=== PATIENT | female | born 1955 | race Caucasian/White ===

== ENCOUNTER 2019-01-14 15:22 | Emergency (ER) | payer MEDICARE ==
[2019-01-14] MEDS ORDERED: Sodium Chloride 0.9% 10 ML Syringe FLUSH PRN (19:56)
[2019-01-14] MEDS ORDERED: Ondansetron 4 MG/2 ML SDV IVPUSH ONE (19:58)
[2019-01-14] MEDS ORDERED: Ketorolac 30 MG/ML SDV IVPUSH ONE (19:58)
[2019-01-14] MEDS ORDERED: Sodium Chloride 0.9% 1,000 ML IV SCH ×2 (20:00→21:15)
--- NOTE | 2019-01-14 20:12 | EDM.PDOC ---
ED HPI GENERAL MEDICAL PROBLEM - General Chief Complaint: General Stated Complaint: DEHYDRATED Time Seen by Provider: 01/14/19 20:00 Source of Information: Reports: Patient History Limitations: Reports: No Limitations - History of Present Illness INITIAL COMMENTS - FREE TEXT/NARRATIVE: La is a 63 year old female who presents to the ED today with fever, chills , productive cough with green sputum production, sinus pressure/pain and body aches for the last few days. Patient was seen in the clinic yesterday, told she was dehydrated and sent home. Patient has been nauseated, unable to drink fluids, unable to eat. Patient denies any vomiting or diarrhea. Patient does have hx of tachycardia but arrives here with 130 heart rate this evening. She denies any chest pain/pressure. Patient has not taken anything for her symptoms due to her nausea. Onset: Gradual Duration: Day(s): (5) Generalized Pain Score (Numeric/FACES): 8 - Related Data Allergies Allergy/AdvReac Type Severity Reaction Status Date / Time morphine Allergy Itching Verified 01/14/19 19:19 Sulfa (Sulfonamide Allergy Hives Verified 01/14/19 19:19 Antibiotics) Home Meds: Home Meds Albuterol [Ventolin HFA] 2 puff .XX Q4H PRN 01/14/19 [History] Ascorbic Acid [Vitamin C] 2,000 mg PO DAILY 01/14/19 [History] Budesonide/Formoterol Fumarate [Symbicort 160-4.5 Mcg Inhaler] 1 puff INH BID PRN 01/14/19 [History] Ca Carbonate/Vitamin D3/Vit K [Calcium + D Soft Chewable Tab] 1 each PO DAILY [History] Cholecalciferol (Vitamin D3) [Vitamin D] 50,000 unit PO Q7D 01/14/19 [History] DULoxetine HCl [Cymbalta] 120 mg PO DAILY 01/14/19 [History] DULoxetine [Cymbalta] 60 mg PO BEDTIME 01/14/19 [History] Estrodial 1 tab PO DAILY 01/14/19 [History] Furosemide 20 mg PO DAILY 01/14/19 [History] Levothyroxine [Synthroid] 88 mcg PO ACBREAKFAST 01/14/19 [History] Linaclotide [Linzess] 145 mcg PO DAILY 01/14/19 [History] Meloxicam [Mobic] 15 mg PO DAILY 01/14/19 [History] Multivitamin/Iron/Folic Acid [Centrum Adults Tablet] 1 tab PO DAILY 01/14/19 [ History] Omeprazole 20 mg PO DAILY 01/14/19 [History] Propranolol [Inderal] 10 mg PO DAILY PRN 01/14/19 [History] clonazePAM [Clonazepam] 0.5 mg PO BID PRN 01/14/19 [History] rOPINIRole [Requip] 1 mg PO DAILY 01/14/19 [History] tiZANidine HCl [Tizanidine HCl] 4 mg PO BEDTIME 01/14/19 [History] Past Medical History Cardiovascular History: Reports: Other (See Below) Other Cardiovascular History: tachacardia Respiratory History: Reports: COPD Gastrointestinal History: Reports: Irritable Bowel Syndrome, Other (See Below) Other Gastrointestinal History: hernia repair Genitourinary History: Reports: Other (See Below) Other Genitourinary History: interstitial cystitis neurogenic bladder [employer] History: Reports: , Spontaneous Neurological History: Reports: Migraines Psychiatric History: Reports: Anxiety Endocrine/Metabolic History: Reports: Hypothyroidism Oncologic (Cancer) History: Reports: Other (See Below) Other Oncologic History: vulva CA removed - Infectious Disease History Infectious Disease History: Reports: Chicken Pox, Measles, Mumps - Past Surgical History GI Surgical History: Reports: Cholecystectomy, Colonoscopy Female Surgical History: Reports: Hysterectomy, Salpingo-Oophorectomy, Other (See Below) Other Female Surgeries/Procedures: brest reduction due to syringomyelia fibroids removed from brest cyst removed on bladder vaulva ca in situ removed pancreatic shunt placed removed Musculoskeletal Surgical History: Reports: Other (See Below) Other Musculoskeletal Surgeries/Procedures:: repair od ruptured patella l knee shattered l knee cap subrachnoid shunt vs syrinx t-4 to t-0 with laminectomy Social & Family History - Tobacco Use Smoking Status *Q: Never Smoker Second Hand Smoke Exposure: No - Caffeine Use Caffeine Use: Reports: Tea - Alcohol Use Days Per Week of Alcohol Use: 0 - Recreational Drug Use Recreational Drug Use: No ED ROS GENERAL - Review of Systems Review Of Systems: ROS reveals no pertinent complaints other than HPI. ED EXAM, GENERAL - Physical Exam Exam: See Below Exam Limited By: No Limitations General Appearance: Alert, WD/WN Eye Exam: Bilateral Eye: EOMI Nose: Nasal Drainage Throat/Mouth: Normal Oropharynx, Other (dry mucus membranes) Head: Atraumatic Neck: Normal Inspection, Supple, Non-Tender Respiratory/Chest: Lungs Clear Cardiovascular: No Murmur, Tachycardia GI/Abdominal: Normal Bowel Sounds, Soft, Non-Tender Back Exam: Normal Inspection, Full Range of Motion Extremities: Normal Inspection, Normal Range of Motion Neurological: Alert, Oriented, CN II-XII Intact Psychiatric: Normal Affect, Normal Mood Skin Exam: Pallor Course - Vital Signs Last Recorded V/S: Last Vital Signs Temp 37.7 C 01/14/19 21: Pulse 113 H 01/14/19 21: Resp 15 01/14/19 21: BP 155/66 H 01/14/19 21: Pulse Ox 94 L 01/14/19 21:29 La is a 63 year old female who presents to the ED today with c/o fever, chills, body aches, URI symptoms, dehydration and tachycardia. Please refer to HPI and focused exam. Patient arrives here with fever, heart rate of 131 and hypertensive, appears dehydrated on exam. IV placed, patient given 2 liters of NS. Blood work obtained, white count normal, left shift, normal lactic acid , HGB stable at 11.7. CRP significantly elevated 23.48, sodium of 133, creatinine of 1.1 with GFR of 50. AST mildly elevated at 47. CXR with RLL RML pneumonia, patient started on IV Zithromax and Rocephin, heart rate improved to 104, we are out of beds here, patient would like to be transferred to [facility], spoke with their hospitalist, Dr. Falk. Patient agreeable to plan of care and discharged in stable condition. - Orders/Labs/Meds Orders: Active Orders 24 hr Category Date Time Status Peripheral IV Care [RC] . DIRECTED Care 01/14/19 19:56 Active Chest 2V [CR] Stat Exams 01/14/19 19:57 Taken Azithromycin [Zithromax] 500 mg Med 01/14/19 22:18 Active Sodium Chloride 0.9% [Normal Saline] 250 ml IV ONETIME Sodium Chloride 0.9% [Normal Saline] 1,000 ml Med 01/14/19 20:00 Active IV ASDIRECTED Sodium Chloride 0.9% [Normal Saline] 1,000 ml Med 01/14/19 21:15 Active IV ASDIRECTED Sodium Chloride 0.9% [Saline Flush] Med 01/14/19 19:56 Active 10 ml FLUSH ASDIRECTED PRN cefTRIAXone [Rocephin] 2 gm Med 01/14/19 22:17 Active Sodium Chloride 0.9% [Normal Saline] 50 ml IV ONETIME Peripheral IV Insertion Adult [OM.PC] Routine Oth 01/14/19 19:56 Ordered Medication Orders Sodium Chloride (Normal Saline) 1,000 mls @ 999 mls/hr IV ASDIRECTED ALON Last Admin: 01/14/19 20:18 Dose: 999 mls/hr Sodium Chloride (Normal Saline) 1,000 mls @ 999 mls/hr IV ASDIRECTED ALON Last Admin: 01/14/19 21:31 Dose: 999 mls/hr Azithromycin 500 mg/ Sodium (Chloride) 250 mls @ 250 mls/hr IV ONETIME ONE Stop: 01/14/19 23:17 Ceftriaxone Sodium 2 gm/ (Sodium Chloride) 50 mls @ 100 mls/hr IV ONETIME ONE Stop: 01/14/19 22:46 Sodium Chloride (Saline Flush) 10 ml FLUSH ASDIRECTED PRN PRN Reason: Keep Vein Open Labs: Laboratory Tests 01/14/19 01/14/19 01/14/19 Range/Units 20:12 20:12 20:12 WBC 8.8 (4.5-11.0) K/uL RBC 3.88 (3.30-5.50) M/uL Hgb 11.7 L (12.0-15.0) g/dL Hct 36.1 (36.0-48.0) % MCV 93 (80-98) fL MCH 30 (27-31) pg MCHC 32 (32-36) % Plt Count 231 (150-400) K/uL Neut % (Auto) 88 H (36-66) % Lymph % (Auto) 8 L (24-44) % Wayne % (Auto) 4 (2-6) % Eos % (Auto) 0 L (2-4) % Baso % (Auto) 0 (0-1) % Sodium 133 L (140-148) mmol/L Potassium 4.6 (3.6-5.2) mmol/L Chloride 100 (100-108) mmol/L Carbon Dioxide 24 (21-32) mmol/L Anion Gap 13.6 (5.0-14.0) mmol/L BUN 14 (7-18) mg/dL Creatinine 1.1 H (0.6-1.0) mg/dL Est Cr Clr Drug Dosing 51.57 mL/min Estimated GFR (MDRD) 50 L (>60) Glucose 119 H (74-106) mg/dL Lactic Acid 1.7 (0.4-2.0) mmol/L Calcium 8.6 (8.5-10.1) mg/dL Total Bilirubin 0.3 (0.2-1.0) mg/dL AST 47 H (15-37) U/L ALT 37 (12-78) U/L Alkaline Phosphatase 115 (46-116) U/L C-Reactive Protein 23.48 H (0.0-0.3) mg/dL Total Protein 7.2 (6.4-8.2) g/dL Albumin 3.2 L (3.4-5.0) g/dL Globulin 4.0 H (2.3-3.5) g/dL Albumin/Globulin Ratio 0.8 L (1.2-2.2) Meds: Medications Generic Name Dose Route Start Last Admin Trade Name Freq PRN Reason Stop Dose Admin Sodium Chloride 1,000 mls @ 999 mls/hr 01/14/19 20:00 01/14/19 20:18 Normal Saline IV 999 mls/hr ASDIRECTED ALON Administration Sodium Chloride 1,000 mls @ 999 mls/hr 01/14/19 21:15 01/14/19 21:31 Normal Saline IV 999 mls/hr ASDIRECTED ALON Administration Azithromycin 500 mg/ Sodium 250 mls @ 250 mls/hr 01/14/19 22:18 Chloride IV 01/14/19 23:17 ONETIME ONE Ceftriaxone Sodium 2 gm/ 50 mls @ 100 mls/hr 01/14/19 22:17 Sodium Chloride IV 01/14/19 22:46 ONETIME ONE Sodium Chloride 10 ml 01/14/19 19:56 Saline Flush FLUSH ASDIRECTED PRN Keep Vein Open Discontinued Medications Generic Name Dose Route Start Last Admin Trade Name Freq PRN Reason Stop Dose Admin Ketorolac Tromethamine 30 mg 01/14/19 19:58 01/14/19 20:20 Toradol IVPUSH 01/14/19 19:59 30 mg ONETIME ONE Administration Ondansetron HCl 4 mg 01/14/19 19:58 01/14/19 20:19 Zofran IVPUSH 01/14/19 19:59 4 mg ONETIME ONE Administration Departure - Departure Time of Disposition: 00:00 Disposition: DC/Tfer to Acute Hospital 02 Condition: Fair Clinical Impression: Pneumonia - Discharge Information Referrals: PCP,None [Primary Care Provider] - Forms: ED Department Discharge - My Orders Last 24 Hours: My Active Orders 01/14/19 19:56 Peripheral IV Care [RC] . DIRECTED Sodium Chloride 0.9% [Saline Flush] 10 ml FLUSH ASDIRECTED PRN Peripheral IV Insertion Adult [OM.PC] Routine 01/14/19 19:57 Chest 2V [CR] Stat 01/14/19 20:00 Sodium Chloride 0.9% [Normal Saline] 1,000 ml IV ASDIRECTED 01/14/19 21:15 Sodium Chloride 0.9% [Normal Saline] 1,000 ml IV ASDIRECTED 01/14/19 22:17 cefTRIAXone [Rocephin] 2 gm Sodium Chloride 0.9% [Normal Saline] 50 ml IV ONETIME 01/14/19 22:18 Azithromycin [Zithromax] 500 mg Sodium Chloride 0.9% [Normal Saline] 250 ml IV ONETIME - Assessment/Plan Last 24 Hours: My Active Orders 01/14/19 19:56 Peripheral IV Care [RC] . DIRECTED Sodium Chloride 0.9% [Saline Flush] 10 ml FLUSH ASDIRECTED PRN Peripheral IV Insertion Adult [OM.PC] Routine 01/14/19 19:57 Chest 2V [CR] Stat 01/14/19 20:00 Sodium Chloride 0.9% [Normal Saline] 1,000 ml IV ASDIRECTED 01/14/19 21:15 Sodium Chloride 0.9% [Normal Saline] 1,000 ml IV ASDIRECTED 01/14/19 22:17 cefTRIAXone [Rocephin] 2 gm Sodium Chloride 0.9% [Normal Saline] 50 ml IV ONETIME 01/14/19 22:18 Azithromycin [Zithromax] 500 mg Sodium Chloride 0.9% [Normal Saline] 250 ml IV ONETIME
[2019-01-14] MEDS ORDERED: cefTRIAXone 2 GM in Sodium Chloride 0.9% 50 ML IV ONE (22:17)
[2019-01-14] MEDS ORDERED: Azithromycin 500 MG in Sodium Chloride 0.9% 250 ML IV ONE (22:18)
--- NOTE | 2019-01-14 23:10 | CRLCR ---
Indication: Cough and fever Technique: Chest 2 views Comparison: None Findings/Impression: Cardiovascular and mediastinum: Upper limits of normal cardiac size. An unfolded aorta. Lungs and pleural spaces: A right infrahilar infiltrate consistent with pneumonia. Correlate clinically and follow-up to document complete resolution. No pleural effusions. No pneumothorax seen. Bones and soft tissues: No significant findings. Dictated by Severino Christine MD @ 01/14/2019 11:08:12 PM Dictated by: Severino Christine MD @ 01/14/2019 23:09:34 (Electronically Signed)
[2019-01-14] MEDS ORDERED: Ondansetron 4 MG Tab.DIS PO ONE (23:12)
== END 2019-01-15 00:35 ==
LOC: JP.ED 15:22
DX: J18.9 Pneumonia, unspecified organism (principal); J44.9 Chronic obstructive pulmonary disease, unspecified; F41.9 Anxiety disorder, unspecified; E03.9 Hypothyroidism, unspecified; Z88.2 Allergy status to sulfonamides; Z88.5 Allergy status to narcotic agent; Z79.51 Long term (current) use of inhaled steroids
CPT/HCPCS: 36415; 71046; 80053; 83605; 85025; 86140; 96361; 96365; 96367; 96375; 99284; A9270; J0456; J0696; J1885; J2405; J7030; J7050